=== PATIENT | female | born 1935 | race Caucasian/White ===

== ENCOUNTER 2016-07-30 17:45 | Emergency (ER) | payer MEDICARE, OTHER ==
[2016-07-30 17:58] LABS: BASOPHILS % 0.4 (0.0-1.5); EOSINOPHILS % 1.9 % (0.0-6.8); MEAN CORPUSCULAR VOLUME 95.2 fl (80.0-100.0); MONOCYTES % 5.2 % (0.0-11.0); NEUTROPHILS # 2.9 # k/uL (1.4-7.7)
[2016-07-30 18:17] LABS: eGFR (African) > 60; eGFR (Non-African) > 60
--- NOTE | 2016-07-30 18:32 | Diagnostic Imaging Report ---
[facility] [address] [id number] Report Submission Date: Jul 30, 2016 6:31:28 PM CDT Patient Study Name: TYLER MORLEY Date: Jul 30, 2016 6:06:02 PM CDT Modality Type: CR Gender: F Description: CHEST : 33 Institution: [facility] Physician: SOUMYA HYLTON - BRAULIO Chest, PA and lateral History: Shortness of breath, chest pain Findings: No infiltrate, effusion or pneumothorax is present. Heart size, mediastinum and pulmonary vascularity are normal. Impression: No active disease. Electronically signed on Jul 30, 2016 6:31:28 PM CDT by: Raz CARTER
--- NOTE | 2016-07-30 18:59 | ED Physician Documentation ---
Chest Pain - HISTORIAN Historian: patient, child - HPI Stated Complaint: Reproducible Rib/Chest Wall Pain Chief Complaint: Chest Pain Additional Information: lt lopwer ant chest-rib pain worse w/movement deep breath pressure-no herpoes like rash seen Onset: days ago (1 week but wokrse past 2-3 daysd has had sig recent ckough w/ cold bnut better now) Timing: gradual onset, still present Duration: waxing, waning Last known Well Date: 07/23/16 Last Known Well Time: 16:00 Severity: moderate Quality: pressure, burning, sharp, stabbing (no radiation) Chest Pain Radiation: no radiation Chest Pain Signs/Symptoms: denies: nausea, vomiting, diaphoresis, cool extremities Worsened By: deep breaths, exertion, movement, change in position Relieved By: other (reclining quietly) - ROS CONST: no problems MS/LYMPH: none GI/: none EYES/ENT: none SKIN/ENDO: none NEURO/PSYCH: other (very hard of hearing) - PAST HX MS risk factors: diabetes Type 2 ( parkinsons fdreq falls but none recently low na-ok now htn gerd hi chol) Neuro deficit: none GI disease: GERD Lung disease: none Surgeries/Procedures: cholecysectomy, appendectomy Allergies/Adverse Reactions: Allergies Allergy/AdvReac Type Severity Reaction Status Date / Time No Known Allergies Allergy Unverified 07/30/16 17:58 Home Medications: Ambulatory Orders Medication Instructions Recorded Carbidopa/Levodopa [Sinemet CR] 30 mg PO TID 07/30/16 Diltiazem HCl [Diltiazem 24Hr Cd] 120 mg PO DAILY 07/30/16 Meloxicam [Mobic] 15 mg PO DAILY 07/30/16 Metformin HCl [Glucophage] 500 mg PO BID 07/30/16 Omeprazole [Prilosec] 40 mg PO DAILY 07/30/16 Pravastatin Sodium [Pravastatin 20 mg PO DAILY 07/30/16 Sodium] - SOCIAL HX Smoking History: non-smoker Alcohol Use: none Drug Use: none - FAMILY HX Family HX: none - VITAL SIGNS Vital Signs: Vital Signs Temp Pulse Resp BP Pulse Ox 97.1 F L 84 26 H 149/75 98 07/30/16 17:45 07/30/16 18:30 07/30/16 17:45 07/30/16 17:45 07/30/16 18:30 - REVIEWED ASSESSMENTS Nursing Assessment Reviewed: Yes Vitals Reviewed: Yes ED Results Lab/Radiology - Lab Results Lab Results: Lab Results 07/30/16 07/30/16 07/30/16 17:50 17:50 17:50 WBC 6.20 K/ul K/ul (4.00-12.00) RBC 3.95 M/ul M/ul (3.90-5.20) Hgb 12.6 g/dL g/dL (12.0-16.0) Hct 37.6 % % (34.5-46.5) MCV 95.2 fl fl (80.0-100.0) MCH 32.0 pg pg (28.0-34.0) MCHC 33.6 g/dL g/dL (30.0-36.0) RDW 13.7 % % (11.3-14.3) Plt Count 230 K/mm3 K/mm3 (130-400) Neut % (Auto) 47.6 % % (39.0-79.0) Lymph % (Auto) 43.5 % % (16.0-50.0) [place] % (Auto) 5.2 % % (0.0-11.0) Eos % (Auto) 1.9 % % (0.0-6.8) Baso % (Auto) 0.4 (0.0-1.5) Neut # 2.9 # k/uL # k/uL (1.4-7.7) Lymph # 2.7 # k/uL # k/uL (0.6-4.0) [place] # 0.3 # k/uL # k/uL (0.0-0.9) Eos # 0.1 # k/uL # k/uL (0.0-0.6) Baso # 0.0 # k/uL # k/uL (0.0-0.5) Reactive Lymphs % 1.3 % % (0.0-5.0) Reactive Lymphs # 0.1 # k/uL # k/uL (0.0-0.8) Sodium 140 mmol/L mmol/L (136-145) Potassium 4.3 mmol/L mmol/L (3.5-5.0) Chloride 101 mmol/L mmol/L (98-110) Carbon Dioxide 28 mmol/L mmol/L (20-32) BUN 25 mg/dL mg/dL (10-26) Creatinine 1.1 mg/dL mg/dL (0.4-1.5) Estimated Creat Clear 70 Est GFR ( Amer) > 60 (60 - ) Est GFR (Non-Af Amer) > 60 (60 - ) Glucose 128 mg/dL H mg/dL (70-99) Calcium 9.7 mg/dL mg/dL (8.5-10.5) Total Bilirubin 0.2 mg/dL mg/dL (0.2-1.2) AST 22 U/L U/L (0-41) ALT 11 U/L U/L (0-45) Alkaline Phosphatase 347 U/L H U/L (46-116) Creatine Kinase 113 U/L U/L (0-225) Troponin I < 0.03 ng/mL L ng/mL (0.03-0.06) Total Protein 7.4 g/dL g/dL (6.0-8.5) Albumin 4.4 g/dL g/dL (3.0-5.5) - Orders Orders: ED Orders Category Date Time Status Continuous EKG monitoring Q30M Care 07/30/16 17:46 Active Continuous Pulse Oximetry Q30M Care 07/30/16 17:[address] Saline Lock/IV NOW Care 07/30/16 17:46 Active CHEST P.A.&LAT 2 VIEWS [RAD] Stat Exams 07/30/16 Completed CBC/PLATELET/DIFF Routine Lab 07/30/16 17:50 Completed CMP Routine Lab 07/30/16 17:50 Completed CREATINE KINASE Routine Lab 07/30/16 17:50 Completed TROPONIN I (cTnI) Stat Lab 07/30/16 17:50 Completed Chem Sticks Med 07/30/16 18:00 Ordered 1 each CHEMQ EKG WITH COMPARISON Stat Ther 07/30/16 17:46 Ordered Chest Pain Physical Exam - EXAM General Appearance: mild distress, anxious. No: lethargic, hyperventilating EENT: eye inspection normal Neck: nml inspection Respiratory: no resp. distress, nml breath sounds, manifests distinct pain on movement, other (palkpation area reproduces pain also movement less w/cough at this time. palp pain worse area costo chondral jct). No: chest non-tender, resp.distress, decreased air movement, wheezes, rales, rhonchi CVS: reg. rate & rhythm, no murmur Abdomen: soft, non-tender (except near rib cage also reprod pain) Skin: warm/dry, normal color. 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 inst also to son and aston Condition: Good Disposition: 01 HOME, SELF-CARE Decision to Admit: NO Decision Time: 19:13
[2016-07-30 19:38] VITALS: BP 122/71
== END 2016-07-30 19:17 | disposition home or self-care (01) ==
LOC: ED 17:45
DX: M94.0 Chondrocostal junction syndrome [Tietze] (principal)
CPT/HCPCS: 71020; 80053; 82550; 84484; 85025; 99283; S1016

== ENCOUNTER 2016-09-30 11:49 | Outpatient (CLI) | payer MEDICARE, OTHER ==
[2016-09-30 12:44] LABS: eGFR (African) > 60; eGFR (Non-African) > 60
== END 2016-09-30 11:50 ==
LOC: LAB 11:49
PROVIDERS: ATTEND Hospitalist
DX: E87.1 Hypo-osmolality and hyponatremia (principal)
CPT/HCPCS: 36415; 80053

== ENCOUNTER 2018-01-12 12:35 | Emergency (ER) | payer MEDICARE, OTHER ==
[2018-01-12 13:04] VITALS: BP 123/59
--- NOTE | 2018-01-12 13:07 | ED Physician Documentation ---
General Adult - HISTORIAN Historian: patient - HPI Stated Complaint: dizzy, transient change in ms Chief Complaint: General Adult Onset: minutes Timing: better Severity: moderate Further Comments: yes (Pt is an 82 yo female with c/o transient dizziness, "tunnel vision," nausea, confusion. Pt has hx Parkinson's dz, HTN, and diet- controlled DM. Pt went to physical therapy this am and afterwards went out to breakfast and had pancakes with a lot of syrup. Sx occurred a short time later upon arriving home. Sx have improved greatly, but pt c/o headache, which she has had since early this morning, before the dizziness incident. 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) MS/SKIN/LYMPH: none NEURO/PSYCH: headache, dizziness - PAST HX Past History: other (GERD, HLD, HTN) Surgeries/Procedures: cholecystectomy, other (ortho surgery) Allergies/Adverse Reactions: Allergies Allergy/AdvReac Type Severity Reaction Status Date / Time No Known Allergies Allergy Verified 01/12/18 13:05 Home Medications: Ambulatory Orders Medication Instructions Recorded Diltiazem HCl [Diltiazem 24Hr Cd] 120 mg PO DAILY 07/30/16 Meloxicam [Mobic] 15 mg PO DAILY 07/30/16 Acetaminophen [Tylenol Extra 1,000 mg PO HS u2 12/12/17 Strength] Amitriptyline HCl 25 mg PO HS 12/12/17 Aspirin 81 mg PO DAILY 12/12/17 Atorvastatin Calcium 40 mg PO HS 12/12/17 Carvedilol 3.125 mg PO BID u2 12/12/17 Isosorbide Mononitrate [Isosorbide 30 mg PO DAILY u2 12/12/17 Mononitrate Er] Carbidopa/Levodopa [Sinemet CR] 1 tab PO QID 01/12/18 Omeprazole 2 tab PO DAILY 01/12/18 Tramadol HCl [Ultram] 1 tab PO TID PRN 01/12/18 - SOCIAL HX Smoking History: non-smoker - FAMILY HX Family History: No - VITAL SIGNS Vital Signs: Vital Signs Temp Pulse Resp BP Pulse Ox 122/71 07/30/16 19:31 - REVIEWED ASSESSMENTS Nursing Assessment Reviewed: Yes Vitals Reviewed: Yes Progress - Progress Progress: CXR: The cardiomediastinal silhouette is normal. Pulmonary vascularity is normal. Lungs are clear. Degenerative findings of the shoulders are present, right worse than left. Impression: No active disease. Tylenol 650 mg po Glucose 408 --> 126 with no intervention improved - EKG/XRAY/CT EKG: NSR (HR=98; 1st degree AV block.) XRAY: chest (No active disease.) General Adult Physical Exam - PHYSICAL EXAM GENERAL APPEARANCE: mild distress EENT: pharynx normal NECK: normal inspection, supple RESPIRATORY: no resp distress, chest non-tender, breath sounds normal CVS: reg rate & rhythm, heart sounds normal ABDOMEN: soft, no organomegaly, normal bowel sounds BACK: normal inspection, no CVA tenderness SKIN: warm/dry, normal color EXTREMITIES: non-tender, normal range of motion, no evidence of injury, no edema NEURO: oriented X3, CN's nml as tested, motor nml, sensation nml Discharge Clincal Impression: hyperglycemic episode Referrals: Mayo Salter MD [Primary Care Provider] - Condition: Good Disposition: 01 HOME, SELF-CARE Decision to Admit: NO Decision Time: 15:39
[2018-01-12 13:30] LABS: BASOPHILS % 0.4 (0.0-1.5); EOSINOPHILS % 2.2 % (0.0-6.8); MEAN CORPUSCULAR HEMOGLOBIN 31.2 pg (28.0-34.0); MONOCYTES % 3.6 % (0.0-11.0)
[2018-01-12 13:34] LABS: eGFR (Non-African) > 60
[2018-01-12] MEDS ORDERED: ACETAMINOPHEN 325 MG TABLET PO ONE (14:50)
[2018-01-12 19:21] LABS: TROPONIN T <0.010 ng/mL (<0.010)
--- NOTE | 2018-01-12 20:21 | Diagnostic Imaging Report ---
JARRETT NAJERA [facility] [address] [facility] [address] [place] [address]. [id number] Report Submission Date: Jan 12, 2018 1:31:34 PM CDT Patient Study Name: TYLER MORLEY Date: Jan 12, 2018 1:07:32 PM CDT Modality Type: DX Gender: F Description: CHEST : 33 Institution: [facility] Physician: JARRETT NAJERA Portable chest History: Near syncope Portable chest dated January 11, 2018 is without prior radiographs for comparison. The cardiomediastinal silhouette is normal. Pulmonary vascularity is normal. Lungs are clear. Degenerative findings of the shoulders are present, right worse than left. Impression: No active disease. Electronically signed on Jan 12, 2018 1:31:34 PM CDT by: Princess CARTER
== END 2018-01-12 15:00 | disposition home or self-care (01) ==
LOC: ED 12:35
DX: R73.9 Hyperglycemia, unspecified (principal); I10 Essential (primary) hypertension; G20 Parkinson's disease; E11.9 Type 2 diabetes mellitus without complications; R42 Dizziness and giddiness
CPT/HCPCS: 71045; 80053; 82550; 82553; 84484; 85025; 99284; S1016